=== PATIENT | female | born 1965 | race Caucasian/White ===

== ENCOUNTER 2019-12-12 06:25 | Day surgery (SDC) | payer OTHER, SELFPAY ==
--- NOTE | 2019-12-07 14:41 | HO.ANESPROP2 ---
Documented by User: Allison Sierra 12/07/19 14:43 HPI - Anesthesia Eval Consult details Narrative: 54yo F for colonoscopy: screening [facility] Past Medical History Medical History Anxiety Depression History of right tennis elbow HTN (hypertension) Surgical History Surgical History History of bunionectomy of left great toe History of bunionectomy of right great toe Hx of hysterectomy, total Hx of left breast biopsy Social History Social History Smoking Status: Former smoker Smoked in Last 30 Days: No Smoking Quit Date: 2010 Use of substances other than those prescribed or required for medical reasons: No Advance Directives: No Advance Directives Information Provided: Yes Meds Allergies Allergy/AdvReac Type Severity Reaction Status Date / Time morphine Allergy Unknown Vomiting Verified 12/06/19 15:12 Chlorhexidine Allergy Unknown rash Uncoded 12/06/19 15:12 Home Medications Medication Instructions Recorded Confirmed Type No Known Home Meds 12/06/19 12/06/19 History Exam Exam Date and Time: December 07, 2019 1441 Assessment and Plan Assessment Anesthesia Assessment: Chart Reviewed Documented by User: Harika Morales 12/12/19 07:41 [facility] Past Medical History Medical History Anxiety Depression History of right tennis elbow HTN (hypertension) Family History Family history of problems with anesthesia: No (Mother had slow awakening with anesthesia but only once) Surgical History Surgical History History of bunionectomy of left great toe History of bunionectomy of right great toe Hx of hysterectomy, total Hx of left breast biopsy History of Problems with Anesthesia: No Social History Social History Smoking Status: Former smoker Smoked in Last 30 Days: No Smoking Quit Date: 2010 Use of substances other than those prescribed or required for medical reasons: No Advance Directives: No Advance Directives Information Provided: Yes Meds Allergies Allergy/AdvReac Type Severity Reaction Status Date / Time morphine Allergy Unknown Vomiting Verified 12/06/19 15:12 Chlorhexidine Allergy Unknown rash Uncoded 12/06/19 15:12 Home Medications Medication Instructions Recorded Confirmed Type No Known Home Meds 12/06/19 12/06/19 History Exam Height,Weight and Vital Signs: Vital Signs Temp Pulse Resp BP Pulse Ox 12/12/19 07:34 134/73 12/12/19 06:45 98.2 F 85 18 95 Airway Mallampati Class: II TM Dist: >3cm Neck ROM: Full Loose/Missing/Broken Teeth: No ([place] ) Heart: RRR Lungs: CTAB Assessment and Plan Assessment Anesthesia Assessment: Anesthesia Plan Discussed and Chart Reviewed Final Anesthetic Review NPO: Yes ASA Class: II Final Preanesthetic Review: No Changes in Pt Med Stat, Meds/Allgs Chart Reviewed, Consent Obtained/Reviewed and Anes Risks/Benef Reviewed Patient Risk: Low Procedure Risk: Low Anesthetic Plan Anesthetic Plan: MAC: Disposition: Standard PACU
[2019-12-12 06:36] VITALS: BMI 29.6
[2019-12-12 06:45] VITALS: PULSE 85; RESP 18; TEMP 36.8; O2SAT 95
[2019-12-12] MEDS: Lactated Ringers 1,000 ML 100 ML IVCONT (06:52)
--- NOTE | 2019-12-12 07:26 | MHC.SHP ---
Pre-Procedural Eval Section A The patient is an INPATIENT: No The History & Physical has been completed within 30 days and I have reviewed it.: No Section B Chief Complaint: screening Details of Present Illness: Positive Cologuard test, colon cancer screening, hemorrhoids Relevant Family History (Specify if Yes): No Relevant Social History: Tobacco Use (Quitted 9 yrs ago.) Present Medications: see Short Stay Collaborative assessment Medical History: No relevant PMH History of Previous Operations: Relevant previous surgery/procedure and date(s) (Breast -left Bunionectomy [facility]BSO ) Allergies: Allergies Allergy/AdvReac Type Severity Reaction Status Date / Time morphine Allergy Unknown Vomiting Verified 12/06/19 15:12 Chlorhexidine Allergy Unknown rash Uncoded 12/06/19 15:12 Review of Systems Sugical H&P ROS: Negative: Constitution, Cardiovascular, Respiratory and Psychiatric and Yes, Specify: Gastrointestinal (Hemorrhoids) Exam Surgical H&P Exam: Normal: Heart, Normal: Lungs, Normal: Extremities and Normal: Abdomen Plan Diagnosis/Plan: Unchanged Patient has been examined and remains a candidate for the planned procedure
--- NOTE | 2019-12-12 07:29 | P.BOP_ITS ---
Brief Operative Note Date of procedure: 12/13/19 Pre-op diagnosis: Positive Cologuard test, colon cancer screening, hemorrhoids Post-op diagnosis: other (Colon polyps, diverticulosis, hemorrhoids ) Procedure: COLONOSCOPY TILL CECUM WITH SNARE POLYPECTOMY Consent: Indications for the procedure and potential complications of bleeding, perforation, reaction to medications and missed diagnosis were discussed with the patient and informed consent was obtained. Instrument: Olympus PCF H 190 L variable stiffness pediatric colonoscope Monitoring: Vital signs and clinical assessment, intermittent blood pressure monitoring, continuous EKG monitoring, Pulse oximetry and Carbon Dioxide monitoring were done throughout the procedure. Colon withdrawl time was 20 minutes. Procedure: The patient was placed in the left lateral decubitis position and pre-procedure medications were administered. After a digital rectal examination of the ano-rectum, the video colonoscope was inserted into the rectum and advanced through the colon to the cecum. The colonoscope was slowly withdrawn in a retrograde panoramic fashion and the colon mucosa was carefully examined including a retroflexed view of the rectum. Findings and interventions are described below. Procedure Difficulty: Without difficulty Findings: Terminal Ileum: Not evaluated Cecum: Normal Ascending Colon: Normal Transverse Colon: Normal Descending Colon: Moderate diverticulosis Sigmoid Colon: Moderate diverticulosis Rectum: A 12-15 mm sessile polyp at 10 cms removed with a hot snare. A 10-12 mm sessile polyp at 5-6 cms, removed with a hot snare. Ano-rectum: Moderate internal hemorrhoids, hypertrophied anal papillae and patrice-anal skin tags. Colon preparation: Excellent Impression and Post Procedure Diagnosis: Colonoscopy Findings: Two 10 - 15 mm polyps removed Moderate diverticulosis seen in the left colon Moderate hemorrhoids on retroflexed exam. Plan: Await pathology results Patient has an appointment on 01/16/20 in the [facility] with LOWELL Broussard. Repeat Colonoscopy interval based on path results - in 3 years if polyps are adenomatous and 10 years if polyps are hyperplastic. Above findings were reviewed with the patient and colon polyps and diverticulosis handouts were given in the discharge area Surgeon: Gary Sarabia MD Anesthesia: MAC (Gómez Perez CRNA) Injection Maintenance Technician: Idalia Quach Estimated blood loss (mL): 0 Pathology: other (A. Rectal polyps x 2) Condition: stable Disposition: PACU
[2019-12-12 07:34] VITALS: BP 134/73
[2019-12-12 08:22] VITALS: BP 98/63; PULSE 78; RESP 16; TEMP 36.4; O2SAT 98
[2019-12-12 08:37] VITALS: BP 108/73; PULSE 67; RESP 14; O2SAT 99
[2019-12-12 08:52] VITALS: BP 127/87; RESP 16; TEMP 36.4; O2SAT 97
--- NOTE | 2019-12-12 09:23 | HO.POSTANES ---
Post Anesthesia Evaluation Post Anesthesia Evaluation Vital Signs: Vital Signs Temp Pulse Resp BP Pulse Ox 12/12/19 08:52 97.6 F 16 127/87 97 12/12/19 08:37 67 14 108/73 99 12/12/19 08:22 97.6 F 78 16 98/63 98 12/12/19 07:34 134/73 12/12/19 06:45 98.2 F 85 18 95 Anesthesia: Monitored Mental Status: Awake Pain Control: Satisfactory Nausea/Vomiting: None Hydration: Adequate Anesthesia-Related Issues: No Anes. Related Issues
== END 2019-12-12 09:33 | disposition home or self-care (01) ==
PROVIDERS: PCP Hospitalist; Visit Provider Internal Medicine Gastroenterology
PROC: 0DJD8ZZ Inspection of Lower Intestinal Tract, Via Natural or Artificial Opening Endoscopic (ICD-10-PCS; CPT 45378; principal; 2019-12-12 07:30)
DX: Z12.11 Encounter for screening for malignant neoplasm of colon (principal); D12.8 Benign neoplasm of rectum; R19.5 Other fecal abnormalities; K57.30 Diverticulosis of large intestine without perforation or abscess without bleeding; K62.89 Other specified diseases of anus and rectum; K64.8 Other hemorrhoids; K64.4 Residual hemorrhoidal skin tags; Z87.891 Personal history of nicotine dependence; I10 Essential (primary) hypertension; Z88.8 Allergy status to other drugs, medicaments and biological substances
CPT/HCPCS: 45385; 88305